=== PATIENT | male | born 1980 | race Caucasian/White ===

== ENCOUNTER 2018-12-18 11:05 | Inpatient (IN) | payer MEDICAID ==
[~2018-12-18] VITALS: Ht 175.3 cm; Wt 105.6 kg
[~2018-12-18 11:05] MED LIST: DENIES HOME MEDS
[2018-12-18] MEDS ORDERED: SODIUM CHLORIDE 0.9% 1,000 ML IVB ONE (11:43)
[2018-12-18] MEDS ORDERED: KETOROLAC TROMETH 30 MG/ML 1ML VIAL IV ONE (11:45)
[2018-12-18 12:15] LABS: Basophils # (auto) 0.1 uL; Eosinophils # (auto) 0 uL; Lymphocytes # (auto) 1.3 uL; Mean Corpuscular Hemoglobin 32.2 pg (28.0-32.0); Nucleated Red Blood Cells % 0.1 %
[2018-12-18 12:18] LABS: Urine Bacteria NONE SEEN /hpf (None Seen); Urine Blood Negative /uL (Negative); Urine Specific Gravity 1.005 (1.001-1.035); Urine WBC None Seen /hpf (0 - 3)
[2018-12-18 12:20] LABS: Basophils % (auto) 0.8 % (0.0-2.0); Eosinophils % (auto) 0.5 % (0.0-7.0); Hematocrit 53.3 % (41.0-53.0); Hemoglobin 18.4 g/dL (13.5-17.5); Lymphocytes % (auto) 17.5 % (10.0-50.0); Mean Corpuscular Hgb Conc. 34.6 g/dL (32.0-36.0); Mean Corpuscular Volume 93.1 fL (80.0-100.0); Monocytes # (auto) 0.6 uL; Monocytes % (auto) 8.6 % (0.0-12.0); Neutrophils # (auto) 5.3 uL; Neutrophils % (auto) 72.6 % (37.0-80.0); Platelet Count (auto) 178 10^3/uL (140-450); Red Blood Cells 5.72 10^6/uL (4.5-5.90); Red Cell Distribution Width 13.1 % (11.8-14.3); White Blood Cell 7.3 10^3/uL (4.4-10.8)
[2018-12-18 12:32] LABS: Albumin 4.2 g/dL (3.4-5.0); BUN/Creatinine Ratio 9.2; Calcium 8.6 mg/dL (8.5-10.1); Potassium 3.4 mmol/L (3.5-5.1)
[2018-12-18 12:41] LABS: Bilirubin, Total 0.8 mg/dL (0.2-1.0); Total Protein 7.4 g/dL (6.4-8.2)
[2018-12-18] MEDS ORDERED: MORPHINE SULF INJ 2 MG/ML SYRINGE 1ML IV PRN (14:00)
[2018-12-18] MEDS ORDERED: ONDANSETRON HCL 4 MG/2 ML VIAL IV PRN (14:00)
[2018-12-18] MEDS ORDERED: ACETAMINOPHEN 500 MG TAB PO PRN (14:00)
[2018-12-18] MEDS: metroNIDAZOLE 500MG/100ML 100 ML IV SCH ×2 (14:23→21:40)
[2018-12-18] MEDS: D5W/ SOD CHL 0.9%/KCL 20MEQ 1,000 ML IV SCH (14:23)
--- NOTE | 2018-12-18 15:00 | NUR ---
MS admit from ER CABLE,LUC Zuniga admitted MS. Patient oriented to primary RN, unit, room, bed, and unit policies regarding patient care and visiting hours. Patient weighed by bedscale and encouraged to call if they need something. All questions and concerns addressed, patient verbalized understanding. No distress or sob noted at this time. Patient states tolerable pain level and denies need for pain meds at this time. Will cont to monitor.
[2018-12-18] MEDS: HYDROcodone-ACET 5/325MG TAB PO PRN (15:45)
[2018-12-18 15:56] VITALS: BP 142/85
[2018-12-18 16:40] VITALS: BP 142/85
--- NOTE | 2018-12-18 19:05 | NUR ---
Patient care endorsed endorsed care to Rocky rn. Patient resting comfortably in bed in no acute distress or sob noted. Family at bedside.
--- NOTE | 2018-12-18 19:30 | NUR ---
Opening Shift Note Assumed care of patient. Patient is awake and alert with family at bedside. No S/S of distress/SOB. Instructed on POC and to call for assist PRN, will continue to monitor for changes. IV's present in left hand, 18G and left forearm, 18G, intact, patent with no s/s of pain or discomfort. Bed locked in lowest position and bed rails up x2. Call light within reach.
--- NOTE | 2018-12-18 20:30 | NUR ---
Javier at bedside
[2018-12-18 22:00] VITALS: BP 132/69
[2018-12-19 05:00] VITALS: BP 97/47
[2018-12-19 06:03] LABS: Basophils # (auto) 0 uL; Basophils % (auto) 0.5 % (0.0-2.0); Eosinophils # (auto) 0.1 uL; Eosinophils % (auto) 1.6 % (0.0-7.0); Hematocrit 48.5 % (41.0-53.0); Hemoglobin 16.8 g/dL (13.5-17.5); Lymphocytes # (auto) 1.1 uL; Lymphocytes % (auto) 21.6 % (10.0-50.0); Mean Corpuscular Hemoglobin 32.2 pg (28.0-32.0); Mean Corpuscular Hgb Conc. 34.6 g/dL (32.0-36.0); Mean Corpuscular Volume 93.2 fL (80.0-100.0); Monocytes # (auto) 0.6 uL; Monocytes % (auto) 10.7 % (0.0-12.0); Neutrophils # (auto) 3.5 uL; Neutrophils % (auto) 65.6 % (37.0-80.0); Nucleated Red Blood Cells % 0.1 %; Platelet Count (auto) 159 10^3/uL (140-450); Red Blood Cells 5.21 10^6/uL (4.5-5.90); Red Cell Distribution Width 13.5 % (11.8-14.3); White Blood Cell 5.3 10^3/uL (4.4-10.8)
[2018-12-19 06:18] LABS: INR 1.13 (0.9-1.15); Partial Thromboplastin Time 23.7 sec (23.64-32.05); Potassium 4.3 mmol/L (3.5-5.1)
[2018-12-19] MEDS: metroNIDAZOLE 500MG/100ML 100 ML IV SCH ×3 (06:21→22:33)
[2018-12-19 06:25] LABS: Albumin 3.4 g/dL (3.4-5.0); BUN/Creatinine Ratio 6.5; Bilirubin, Total 0.6 mg/dL (0.2-1.0); Calcium 7.9 mg/dL (8.5-10.1); Total Protein 6.1 g/dL (6.4-8.2)
[2018-12-19] MEDS: HYDROcodone-ACET 5/325MG TAB PO PRN (06:25)
--- NOTE | 2018-12-19 07:30 | NUR ---
Opening Shift Note Assumed care of patient, awake and alert. No S/S of distress/SOB or pain. Instructed on POC and to call for assist PRN, will continue to monitor for changes Q1hr and PRN. Safety precautions in place per fall risk protocol.
[2018-12-19 09:00] VITALS: BP 125/67
[2018-12-19] MEDS ORDERED: LEVOFLOXACIN 500MG 100 ML IV SCH (10:00)
[2018-12-19] MEDS: D5W/ SOD CHL 0.9%/KCL 20MEQ 1,000 ML IV SCH ×3 (10:03→20:00)
--- NOTE | 2018-12-19 11:55 | NUR ---
Hospitalist at bedside MD Hou at bedside. aware of patient status. Awaiting cardiac clearance at this time. No new orders received. Will cont to monitor patient.
[2018-12-19 12:00] VITALS: BP 144/75
[2018-12-19 13:00] VITALS: BP 144/75
[2018-12-19 17:00] VITALS: BP 121/69
--- NOTE | 2018-12-19 17:08 | NUR ---
Surgeon paged MD Herrera paged to notify that Dr. Barnes was at bedside and states patient is cleared for surgery. Spoke to Lary with his answering service to deliver message. Awaiting call back at this time. Will cont to monitor patient at this time.
--- NOTE | 2018-12-19 18:17 | NUR ---
Second Page to Surgeon MD. Herrera paged at this time. Spoke to Lary with his answering service and she states "he is still in surgery and he will call you back when he is done." Awaiting call back at this time.
--- NOTE | 2018-12-19 19:18 | NUR ---
Patient care endorsed Patient care endorsed to ROSALIND Hidalgo. Patient is resting comfortably and showing no signs of distress, sob, or pain at this time. Call light within reach. Addendum: 12/19/18 at 1922 by MALORIE DODGE RN RN ROSALIND Hidalgo to follow up with MD Herrera for possible surgery. She verbalized understanding and will page MD if no call back is received.
--- NOTE | 2018-12-19 19:30 | NUR ---
Opening Shift Note Assumed care of patient. Patient is awake and alert. No S/S of distress/SOB or pain. Instructed on POC and to call for assist PRN, will continue to monitor for changes. Bed locked in lowest position and bed rails up x2. Call light within reach.
[2018-12-19 22:00] VITALS: BP 140/63
[2018-12-20 05:09] VITALS: BP 95/51
--- NOTE | 2018-12-20 06:20 | NUR ---
Patient asks to speak with primary RN. Upon entrance of the room patient asked if i have heard back from the surgeon. Patient then stated that he wants to sign out AMA since he does not have an established surgery time. He also stated "I've been sitting here for a couple days now and i don't want to be sitting here through the weekend waiting on the surgeon". I let him know that the surgeon will be paged again as he told me "dont even worry about it". Patient was educated on all risks of leaving against medical advice. Patient verbalized understanding and stated "I understand, just get me the paper to sign so i can get out of here".
== END 2018-12-20 06:30 | disposition left against medical advice (07) ==
LOC: ER 11:05 → OVERFLOW 11:06 → CENTRAL 15:01
PROVIDERS: ADMIT Nurse Practitioner Acute Care; ATTEND Internal Medicine Nephrology
DX: K80.00 Calculus of gallbladder with acute cholecystitis without obstruction (principal); D73.4 Cyst of spleen; E66.9 Obesity, unspecified; E87.6 Hypokalemia; Z68.34 Body mass index [BMI] 34.0-34.9, adult; Z87.442 Personal history of urinary calculi; Z83.3 Family history of diabetes mellitus; Z53.29 Procedure and treatment not carried out because of patient's decision for other reasons
CPT/HCPCS: 36415; 74176; 76705; 80053; 81001; 85025; 85610; 85730; G0378; J1885; J1956; J3490